=== PATIENT | female | born 1950 | race Caucasian/White ===

== ENCOUNTER → 2021-10-01 10:40 | Outpatient (CLI) | payer MEDICARE, OTHER, SELFPAY ==
[2021-10-01 18:57] LABS: Cholesterol 196 mg/dL (140-199); HDL Cholesterol 47 mg/dL (40-60); LDL Cholesterol Calculated 121 mg/dL (<100); Triglycerides 139 mg/dL (35-150)
[2021-10-01 19:48] LABS: Hemoglobin A1C% w Est Avg Glu 5.7 % (4.0-6.0)
== END ==
PROVIDERS: PCP Family Medicine; Visit Provider Family Medicine
DX: E78.5 Hyperlipidemia, unspecified (principal); Z68.32 Body mass index [BMI] 32.0-32.9, adult
CPT/HCPCS: 80061; 83036

== ENCOUNTER → 2022-01-15 13:07 | Outpatient (CLI) | payer MEDICARE, OTHER, SELFPAY ==
[2022-01-15 21:34] LABS: TSH w/ Reflex to FT4 1.92 uIU/mL (0.47-4.68)
[2022-01-15 21:47] LABS: Erythrocyte Sedimentation Rate 17 MM/HR (0-20)
[2022-01-15 23:15] LABS: BUN Creatinine Ratio 15.5 (6-22); Blood Urea Nitrogen 13 mg/dL (7-17); C-Reactive Protein Quant < 0.5 mg/dL (<1.0); Calcium 9.2 mg/dL (8.4-10.2); Carbon Dioxide 27 mmol/L (22-32); Chloride 108 mmol/L (98-107); Estimated Glomerular Filt Rate > 60 mL/min (>60); Glucose 96 mg/dL (80-110); HEMOLYSIS < 15 (0-50); Potassium 4.6 mmol/L (3.4-5.1); Sodium 140 mmol/L (137-145)
[2022-01-15 23:25] LABS: Rheumatoid Factor < 8.6 IU/mL (<12.0)
[2022-01-16 00:01] LABS: Vitamin B12 > 1000 pg/mL (239-931)
[2022-01-18 16:36] LABS: ANA Screen, IFA Negative (.)
== END ==
PROVIDERS: PCP Family Medicine; Visit Provider Family Medicine
DX: E78.00 Pure hypercholesterolemia, unspecified (principal); M12.9 Arthropathy, unspecified; Z51.81 Encounter for therapeutic drug level monitoring; Z79.1 Long term (current) use of non-steroidal anti-inflammatories (NSAID)
CPT/HCPCS: 80048; 82607; 84443; 85651; 86038; 86140; 86430

== ENCOUNTER → 2023-12-24 13:32 | Outpatient (CLI) | payer MEDICARE, OTHER, SELFPAY ==
[2023-12-24 21:12] LABS: Add Manual Diff / Slide Review NO; Basophils Absolute Auto 0 /uL (0-100); Basophils Percent Auto 0.6 % (0-2); Eosinophils Absolute Auto 100 /uL (0-450); Eosinophils Percent Auto 1.9 % (2-4); Hematocrit 38.4 % (36-46); Hemoglobin 13.1 g/dL (12.0-16.0); Lymphocytes Absolute Auto 1300 /uL (1100-4500); Mean Corpuscular HGB Conc 34.2 % (30-36); Mean Corpuscular Hemoglobin 32.9 PG (26-34); Mean Corpuscular Volume 96.2 fL (80-100); Monocytes Absolute Auto 300 /uL (0-900); Neutrophils Absolute Auto 2600 /uL (1500-7000); Neutrophils Percent Auto 60.5 % (50-75); Platelet Count 217 X10^3/uL (150-400); Red Blood Cell Count 3.99 X10^6/uL (4.0-5.2); Red Cell Distribution Width 13.2 % (11.6-14.8); White Blood Cell Count 4.3 X10^3/uL (4.5-11.0)
[2023-12-24 22:49] LABS: BUN Creatinine Ratio 15.6 (6-22); Blood Urea Nitrogen 14 mg/dL (7-17); Carbon Dioxide 27 mmol/L (22-32); Chloride 107 mmol/L (98-107); Estimated Glomerular Filt Rate > 60 mL/min (>60); Glucose 115 mg/dL (80-110); HEMOLYSIS < 15 (0-50); Potassium 4.3 mmol/L (3.4-5.1); Sodium 140 mmol/L (137-145)
[2023-12-24 23:24] LABS: Erythrocyte Sedimentation Rate 36 MM/HR (0-20)
[2023-12-30 14:36] LABS: ANA Screen, IFA Negative (.)
== END ==
PROVIDERS: PCP Family Medicine; Visit Provider Family Medicine
DX: M25.50 Pain in unspecified joint (principal); M79.10 Myalgia, unspecified site; M25.551 Pain in right hip; G89.29 Other chronic pain; M79.7 Fibromyalgia; M70.61 Trochanteric bursitis, right hip; M70.62 Trochanteric bursitis, left hip
CPT/HCPCS: 80048; 85025; 85651; 86038